=== PATIENT | male | born 1980 | race Hispanic/Latino ===

== ENCOUNTER 2019-07-24 12:00 | Inpatient (IN) | payer OTHER ==
[~2019-07-24] VITALS: Ht 175.3 cm; Wt 97.3 kg
[2019-07-24 14:19] VITALS: BP 134/78
[2019-07-24 14:21] LABS: BASOPHILS % (AUTO) 0.7 % (0.0-5.0); EOSINOPHILS % (AUTO) 0.8 % (0.0-8.0); HEMATOCRIT 43.5 % (42-54); LYMPHOCYTES % (AUTO) 32.5 % (21.0-51.0); MEAN CORPUSCULAR HEMOGLOBIN 31.1 pg (27.0-33.0); MEAN CORPUSCULAR HGB CONC 34.5 g/dL (32.0-36.0); MEAN CORPUSCULAR VOLUME 90.1 fL (79-99); MONOCYTES % (AUTO) 8.8 % (3.0-13.0); NEUTROPHILS % (AUTO) 56.7 % (40.0-77.0); PLATELET COUNT (AUTO) 236 K/uL (130-400); RED BLOOD CELL COUNT(AUTO) 4.83 MIL/uL (4.50-6.20); RED CELL DISTRIBUTION WIDTH 12.4 % (11.0-15.5); WHITE BLOOD COUNT (AUTO) 5.9 K/uL (4.8-10.8)
[2019-07-24 14:22] LABS: APPEARANCE,URINE Clear (CLEAR); BILIRUBIN,URINE Negative (NEGATIVE); COLOR,URINE Yellow (YELLOW); GLUCOSE, URINE (UA) Negative (NEGATIVE); KETONES,URINE Negative (NEGATIVE); LEUKOCYTE ESTERASE ,URINE Negative (NEGATIVE); NITRATE,URINE Negative (NEGATIVE); OCCULT BLOOD,URINE Negative (NEGATIVE); PH,URINE 7.5 (5.0-8.0); PROTEIN,URINE Negative (NEGATIVE)
[2019-07-24 14:33] LABS: INR 0.94 (0.85-1.15); PROTHROMBIN TIME 10.2 SEC (9.6-11.6)
[2019-07-24 14:34] LABS: POTASSIUM 4.1 mmol/L (3.5-5.1)
--- NOTE | 2019-07-24 14:40 | NUR ---
NURSING PER PT HE IS NOT ALLERGIC TO HYDROCODONE STATED ON ORDER. Addendum: 07/25/19 at 1320 by KATHYA CARDENAS RN Amended: Links added.
[2019-07-24] MEDS ORDERED: METH500T6 PO (14:58)
[2019-07-26] VITALS (21 sets, daily range): BP systolic 94–140; BP diastolic 50–81
[2019-07-26] MEDS: CEFAZOLIN SODIUM 1 GM VIAL IVP SCH ×3 (06:00→18:55)
[2019-07-26] MEDS ORDERED: LACTATED RINGERS 1000ML 1,000 ML IV ONE (07:36)
--- NOTE | 2019-07-26 07:55 | NUR ---
POTENTIAL FOR INFECTION: SHAVED LEFT SHOULDER/LEFT UPPER ARM AND AXILLAE PER HAYDEE COWAN FOLLOWED BY WIPING WITH ANAMARIA: 2% CHLORHEXIDINE GLUCONATE CLOTH PATIENTS PRE-OP SKIN PREP.
[2019-07-26] MEDS ORDERED: NABU500T3 PO (07:58)
[2019-07-26] MEDS ORDERED: ROCURONIUM 10MG/1ML SYR 10 MG/ML ML ONE ×2 (08:03→11:21)
[2019-07-26] MEDS ORDERED: FENTANYL CITRATE PF 50 MCG/1 ML 2ML VIAL ONE (08:03)
[2019-07-26] MEDS ORDERED: PROPOFOL 10 MG/ML 20ML VIAL IV ONE (08:03)
[2019-07-26] MEDS ORDERED: SUCCINYLCHOLINE 200MG/10ML SYR ONE (08:03)
[2019-07-26] MEDS ORDERED: LIDOCAINE PF 2% 5ML ABBOJECT ONE ×2 (08:03→13:18)
[2019-07-26] MEDS ORDERED: ROPIVACAINE 0.5% 5MG/ML 30ML IJ ONE (08:06)
[2019-07-26] MEDS ORDERED: CEFAZOLIN SODIUM 1 GM VIAL ONE ×2 (09:00→12:45)
[2019-07-26] MEDS ORDERED: TRANEXAMIC ACID 1000MG/10ML ONE (09:00)
[2019-07-26] MEDS ORDERED: EPHEDRINE SULFATE 50 MG/ML AMPULE ONE (09:08)
[2019-07-26] MEDS ORDERED: CEFAZOLIN SODIUM 1 GM VIAL IRRIG ONE (09:42)
[2019-07-26] MEDS ORDERED: NEOSTIGMINE 5MG/5ML SYR IV ONE (13:18)
[2019-07-26] MEDS ORDERED: KETOROLAC TROMETHAMINE 30MG/ML ONE (13:18)
[2019-07-26] MEDS ORDERED: GLYCOPYRROLATE 1 MG/5 ML SYRINGE ONE (13:18)
[2019-07-26] MEDS ORDERED: ONDANSETRON HCL 4 MG/2 ML VIAL ONE (13:21)
[2019-07-26] MEDS: SODIUM CHLORIDE 0.9% 1000ML 1,000 ML IV SCH ×2 (13:26→23:27)
[2019-07-26] MEDS ORDERED: DiphenhydrAMINE HCL 50 MG/ML VIAL IVP PRN (13:30)
[2019-07-26] MEDS: ACETAMINOPHEN EXTRA STRENGTH 500 MG TABLET PO SCH ×2 (13:30→20:01)
[2019-07-26] MEDS ORDERED: POTASSIUM CHLORIDE 20MEQ/100ML 100 ML IV PRN (13:30)
[2019-07-26] MEDS ORDERED: TRAMADOL HCL 50 MG TABLET PO PRN (13:30)
[2019-07-26] MEDS ORDERED: FE FUMARATE/FA/MV, MIN COMB#15 1 TAB PO PRN (13:30)
[2019-07-26] MEDS ORDERED: POTASSIUM CHLORIDE 10% ELIXIR 20 MEQ/15 ML UDCUP PO PRN (13:30)
[2019-07-26] MEDS ORDERED: TEMAZEPAM 15 MG CAPSULE PO PRN (13:30)
[2019-07-26] MEDS ORDERED: LIDOCAINE HCL-MPF 1% 2ML VIAL IV PRN (13:30)
[2019-07-26] MEDS: ONDANSETRON HCL 4 MG/2 ML VIAL IVP PRN ×2 (14:06→16:20)
--- NOTE | 2019-07-26 17:05 | NUR ---
INITIAL MET W PATIENT AND FAMILY AT BEDSIDE, LIVES WITH SPOUSE, PREVIOUSLY INDPENDNET,, DRIVES, NO DME- DC PLAN IS HOME WITH HH PER DR. LARSEN, [facility] S[facility] AFTER PT KELY
[2019-07-26] MEDS: FAMOTIDINE 20MG TAB 20 MG TAB PO SCH (19:52)
[2019-07-26] MEDS: NABUMETONE 500 MG PO SCH (19:58)
[2019-07-26] MEDS: PREGABALIN 25 MG CAP PO SCH (19:59)
[2019-07-26] MEDS: CELECOXIB 200 MG CAP PO SCH (19:59)
[2019-07-26] MEDS: ASPIRIN 81MG TAB.CHEW PO SCH (19:59)
[2019-07-26] MEDS: OXYCODONE HCL 5 MG TAB PO PRN (23:30)
[2019-07-27] MEDS: CEFAZOLIN SODIUM 1 GM VIAL IVP SCH (02:07)
[2019-07-27] MEDS: KETOROLAC TROMETHAMINE 15MG/ML IV PRN ×2 (02:07→15:02)
[2019-07-27 03:30] VITALS: BP 110/57
[2019-07-27 04:17] LABS: HEMATOCRIT 33.3 % (42-54); MEAN CORPUSCULAR HEMOGLOBIN 31.1 pg (27.0-33.0); MEAN CORPUSCULAR HGB CONC 34.5 g/dL (32.0-36.0); PLATELET COUNT (AUTO) 197 K/uL (130-400); RED CELL DISTRIBUTION WIDTH 12.6 % (11.0-15.5); WHITE BLOOD COUNT (AUTO) 9.6 K/uL (4.8-10.8)
[2019-07-27] MEDS: OXYCODONE HCL 5 MG TAB PO PRN ×5 (04:54→21:41)
[2019-07-27] MEDS: ACETAMINOPHEN EXTRA STRENGTH 500 MG TABLET PO SCH ×3 (04:54→21:41)
[2019-07-27 05:59] LABS: POTASSIUM 3.4 mmol/L (3.5-5.1)
[2019-07-27] MEDS: POTASSIUM CHLORIDE 20 MEQ ERTAB PO PRN ×2 (06:29→11:13)
[2019-07-27 08:11] VITALS: BP 111/69
[2019-07-27] MEDS: POLYETHYLENE GLYCOL 3350 17 GM POWD.PACK PO SCH (08:31)
[2019-07-27] MEDS: TAMSULOSIN HCL 0.4 MG CAP.ER.24H PO SCH (08:31)
[2019-07-27] MEDS: PREGABALIN 25 MG CAP PO SCH ×2 (08:31→19:44)
[2019-07-27] MEDS: CALCIUM CARBONATE 500 MG TABLET PO PRN ×2 (08:32→19:44)
[2019-07-27] MEDS: ASPIRIN 81MG TAB.CHEW PO SCH ×2 (08:32→19:44)
[2019-07-27] MEDS: CELECOXIB 200 MG CAP PO SCH ×2 (08:32→19:44)
[2019-07-27] MEDS: NABUMETONE 500 MG PO SCH ×2 (08:33→19:15)
[2019-07-27] MEDS: FAMOTIDINE 20MG TAB 20 MG TAB PO SCH ×2 (09:00→19:15)
[2019-07-27] MEDS: SODIUM CHLORIDE 0.9% 1000ML 1,000 ML IV SCH (09:26)
[2019-07-27 11:27] VITALS: BP 132/78
[2019-07-27 16:37] VITALS: BP 147/92
[2019-07-27 19:36] VITALS: BP 134/79
[2019-07-27 23:10] VITALS: BP 134/76
[2019-07-28 03:41] VITALS: BP 139/80
[2019-07-28] MEDS: ACETAMINOPHEN EXTRA STRENGTH 500 MG TABLET PO SCH ×2 (05:45→13:54)
[2019-07-28 08:00] VITALS: BP 144/89
[2019-07-28] MEDS: OXYCODONE HCL 5 MG TAB PO PRN (08:02)
[2019-07-28] MEDS: PREGABALIN 25 MG CAP PO SCH (08:53)
[2019-07-28] MEDS: CELECOXIB 200 MG CAP PO SCH (08:53)
[2019-07-28] MEDS: TAMSULOSIN HCL 0.4 MG CAP.ER.24H PO SCH (08:53)
[2019-07-28] MEDS: ASPIRIN 81MG TAB.CHEW PO SCH (08:54)
[2019-07-28] MEDS: POLYETHYLENE GLYCOL 3350 17 GM POWD.PACK PO SCH (08:55)
[2019-07-28] MEDS: FAMOTIDINE 20MG TAB 20 MG TAB PO SCH (08:55)
[2019-07-28] MEDS: NABUMETONE 500 MG PO SCH (09:00)
[2019-07-28] MEDS: KETOROLAC TROMETHAMINE 15MG/ML IV PRN (11:51)
[2019-07-28 12:00] VITALS: BP 155/75
[2019-07-28] MEDS ORDERED: HYDR-4457 PO (13:31)
--- NOTE | 2019-07-28 14:00 | NUR ---
NURSES THAT CARE CALL FROM [facility] THAT PATIENT WILL BE CLIENT OF NURSES THAT CARE CHART TAGGED, LATANYA PRIMARY NURSE AWARE.
[2019-07-28 16:00] VITALS: BP 150/78
--- NOTE | 2019-07-28 18:20 | NUR ---
DISCHARGE PATIENT GIVEN DISCHARGE INSTRUCTIONS VIA TEACH BACK. 20G PIV TO RFA DISCONTINUED, TIP INTACT. DRESSING TO LEFT SHOULDER CHANGED AND HEMOVAC REMOVED WITH TIP INTACT. PATIENT WAS GIVEN RX FOR NORCO PRIOR TO DISCHARGE. PATIENT'S SPOUSE FILLED RX. NURSES THAT [facility] TO FOLLOW UP WITH PATIENT TOMORROW FOR PAIN MANAGEMENT, INCISION CARE AND PHYSICAL THERAPY. REPORT GIVEN TO KARLOS CRISTINA RN. PATIENT SCHEDULED TO FOLLOW UP WITH DR. LARSEN ON 08/18/19 AT 0930. PATIENT TO WEAR SLING TO LEFT ARM. PATIENT STABLE AT THIS TIME. PATIENT WHEELED TO [facility] BY GERARDO POND.
[2019-07-29] MEDS ORDERED: BISACODYL 10 MG SUPP.RECT RC PRN (13:30)
== END 2019-07-28 18:30 | disposition home health service (06) | DRG 483 ==
LOC: EDSTATUS 12:00 → DAHIP 07-26 06:50 → 4AH 07-26 14:00
PROVIDERS: ADMIT Orthopaedic Surgery; ATTEND Orthopaedic Surgery
PROC: 0RRK00Z Replacement of Left Shoulder Joint with Reverse Ball and Socket Synthetic Substitute, Open Approach (ICD-10-PCS; principal; 2019-07-26 08:36)
PROC: 0RPK0JZ Removal of Synthetic Substitute from Left Shoulder Joint, Open Approach (ICD-10-PCS; 2019-07-26 08:36)
DX: T84.89XA Other specified complication of internal orthopedic prosthetic devices, implants and grafts, initial encounter (principal); Z96.612 Presence of left artificial shoulder joint; F32.9 Major depressive disorder, single episode, unspecified; G47.33 Obstructive sleep apnea (adult) (pediatric); G89.29 Other chronic pain; I10 Essential (primary) hypertension; M75.100 Unspecified rotator cuff tear or rupture of unspecified shoulder, not specified as traumatic; M75.102 Unspecified rotator cuff tear or rupture of left shoulder, not specified as traumatic; G43.909 Migraine, unspecified, not intractable, without status migrainosus; F43.10 Post-traumatic stress disorder, unspecified; Y83.8 Other surgical procedures as the cause of abnormal reaction of the patient, or of later complication, without mention of misadventure at the time of the procedure; Y92.89 Other specified places as the place of occurrence of the external cause
CPT/HCPCS: 36415; 73020; 80048; 81003; 82310; 84132; 85025; 85027; 85610; 87070; 87076; 87205; 87641; 97039; A4565; G0378; J0330; J0690; J1885; J2001; J2405; J2704; J2710; J2795; J3010; J3490; J7120